=== PATIENT | male | born 1955 | race Caucasian/White ===

== ENCOUNTER 2016-08-18 08:06 | Emergency (ER) | payer MEDICARE, BC ==
--- NOTE | 2016-08-18 08:11 | EDM.PDOC ---
ED HPI GENERAL MEDICAL PROBLEM - General Chief Complaint: Chest Pain Stated Complaint: SOB Time Seen by Provider: 08/18/16 08:10 - History of Present Illness INITIAL COMMENTS - FREE TEXT/NARRATIVE: 60-year-old male presents emergency room with chest pain. This pain has been present for 8 or 9 days progressively getting worse. It started last night. The patient did not notice a choking spell or anything like that he awoke that night with severe crampy in his mid lower chest. Since this time he's had difficulty swallowing. He cannot keep his medications down he does get stuck in his throat. The pain seems to come in waves and is getting worse over time. He states he has not had much to eat or drink over the last week or so. He has noticed shortness of breath when things are stuck in his throat. This pain does not radiate. He has been seen in the clinic he had a CAT scan of his abdomen done looking at the hernia however gallstones were noticed. Patient has a remarkable history of be in one year post kidney transplant. He's doing well with this however he's developed a incisional hernia that is due to be addressed at the [facility] in one month. On today's visit he's noticed to have an irregularly irregular heart rhythm this is new for him. Epigastric Pain Score (Numeric/FACES): 10 - Related Data Allergies Allergy/AdvReac Type Severity Reaction Status Date / Time No Known Allergies Allergy Verified 08/18/16 08:18 Home Meds: Home Meds Omeprazole [Omeprazole] 20 mg PO DAILY 07/30/13 [History] Acetaminophen [Acetaminophen Extra Strength] 500 mg PO Q6H PRN 08/18/16 [History ] Calcitriol [Rocaltrol] 1 cap PO DAILY 08/18/16 [History] Calcium Carbonate 3 tab PO TID 08/18/16 [History] Fluticasone/Salmeterol [Advair Diskus 500-50] 1 puff INH BID 08/18/16 [History] Folic Acid 1 tab PO DAILY 08/18/16 [History] Levothyroxine [Synthroid] 1 tab PO DAILY 08/18/16 [History] Lutein 1 tab PO DAILY 08/18/16 [History] Magnesium Oxide 1 tab PO BID 08/18/16 [History] Multivitamins [Tab-A-Bibi] 1 tab PO DAILY 08/18/16 [History] Mycophenolate Mofetil [Cellcept] 3 tab PO BID 08/18/16 [History] Sennosides [Senna] 2 tab PO BID PRN 08/18/16 [History] Tacrolimus [Prograf] 4 cap PO BID 08/18/16 [History] Tamsulosin [Flomax] 1 cap PO DAILY 08/18/16 [History] Social & Family History - Recreational Drug Use Recreational Drug Use: No Recreational Drug Type: Reports: Other (see below) (Quit ETOH also in 2003) ED ROS GENERAL - Review of Systems Review Of Systems: See Below Constitutional: Reports: No Symptoms HEENT: Reports: Throat Pain Respiratory: Reports: Shortness of Breath (With the spells he gets in his chest) Cardiovascular: Reports: Chest Pain. Denies: Dyspnea on Exertion, Edema, Lightheadedness, Palpitations GI/Abdominal: Reports: No Symptoms. Denies: Constipation, Diarrhea, Nausea, Vomiting : Reports: No Symptoms Musculoskeletal: Reports: No Symptoms Neurological: Reports: No Symptoms ED EXAM, GENERAL - Physical Exam Exam: See Below Exam Limited By: No Limitations General Appearance: Alert, Moderate Distress (From discomfort) Head: Atraumatic, Normocephalic Neck: Normal Inspection, Supple, Non-Tender, Full Range of Motion. No: Limited Range of Motion, Lymphadenopathy (L), Lymphadenopathy (R), Tender Midline Respiratory/Chest: No Respiratory Distress, Lungs Clear, Normal Breath Sounds Cardiovascular: No Edema, No Murmur, Tachycardia (Is a mild tachycardia rate around 100), Irregularly Irregular GI/Abdominal: Normal Bowel Sounds, Soft, Other (He has some vague mild upper abdominal discomfort mostly in the epigastric area. He has a large hernia right lower quadrant lateral to his transplant incision site) Back Exam: Normal Inspection. No: CVA Tenderness (L), CVA Tenderness (R) EKG INTERPRETATION EKG Date: 08/18/16 Rhythm: a-fib Stuart: normal P-wave: absent QRS: normal ST-T: normal QT: normal Comparison: NA - no prior EKG EKG Interpretation Comments: Abnormal: Atrial fibrillation rate 90 cannot exclude flutter but I think this is less likely and mostly due to artifact. Second EKG is more consistent with flutter variable conduction otherwise no significant changes from the first EKG Course - Vital Signs Last Recorded V/S: Last Vital Signs Temp 36.3 C 08/18/16 08:12 Pulse 99 08/18/16 08:12 Resp 28 H 08/18/16 08:12 BP 125/85 08/18/16 08:45 Pulse Ox 97 08/18/16 08:12 - Orders/Labs/Meds Orders: Active Orders 24 hr Category Date Time Status EKG 12 Lead [EKG Documentation Completion] [] STAT Care 08/18/16 08:26 Active EKG 12 Lead [EKG Documentation Completion] [] STAT Care 08/18/16 10:19 Active Lactated Ringers [Ringers, Lactated] 1,000 ml Med 08/18/16 08:45 Active IV ASDIRECTED Morphine Med 08/18/16 14:57 Once 2 mg IVPUSH ONETIME ONE Medication Orders Lactated Ringer's (Ringers, Lactated) 1,000 mls @ 50 mls/hr IV ASDIRECTED VAN Last Admin: 08/18/16 08:46 Dose: 50 mls/hr Morphine Sulfate (Morphine) 2 mg IVPUSH ONETIME ONE Stop: 08/18/16 14:58 Labs: Laboratory Tests 08/18/16 08/18/16 08/18/16 Range/Units 08:15 08:15 08:15 WBC (4.23-9.07) K/mm3 RBC (4.63-6.08) M/mm3 Hgb (13.7-17.5) gm/L Hct (40.1-51.0) % MCV (79.0-92.2) fl MCH (25.7-32.2) pg MCHC (32.2-35.5) g/dl RDW Std Deviation (35.1-43.9) fL Plt Count (163-337) K/mm3 MPV (9.4-12.3) fl Neutrophils % (Manual) (40-60) % Band Neutrophils % (0-10) % Lymphocytes % (Manual) (20-40) % Atypical Lymphs % % Monocytes % (Manual) (2-10) % Eosinophils % (Manual) (0.8-7.0) % Basophils % (Manual) (0.2-1.2) Platelet Estimate RBC Morph Comment PT (8.0-13.0) SECONDS INR APTT (22-36) SECONDS Sodium 128 L (136-145) mEq/L Potassium 4.7 (3.5-5.1) mEq/L Chloride 97 L (98-107) mEq/L Carbon Dioxide 17 L (21-32) mEq/L Anion Gap 18.7 H (5-15) BUN 23 H (7-18) mg/dL Creatinine 1.2 (0.7-1.3) mg/dL Est Cr Clr Drug Dosing 72.75 mL/min Estimated GFR (MDRD) > 60 (>60) mL/min BUN/Creatinine Ratio 19.2 H (14-18) Glucose 137 H (74-106) mg/dL Calcium 7.4 L (8.5-10.1) mg/dL Magnesium 1.2 L (1.8-2.4) mg/dl Total Bilirubin 0.6 (0.2-1.0) mg/dL AST 104 H (15-37) U/L ALT 106 H (16-63) U/L Alkaline Phosphatase 112 (46-116) U/L Troponin I < 0.017 (0.00-0.056) ng/mL B-Natriuretic Peptide 208 H (0-100) pg/mL Total Protein 8.3 H (6.4-8.2) g/dl Albumin 3.9 (3.4-5.0) g/dl Globulin 4.4 gm/dL Albumin/Globulin Ratio 0.9 L (1-2) Lipase 140 (73-393) U/L 08/18/16 08/18/16 08/18/16 Range/Units 08:39 08:39 12:34 WBC 3.59 L (4.23-9.07) K/mm3 RBC 4.64 (4.63-6.08) M/mm3 Hgb 14.8 (13.7-17.5) gm/L Hct 41.6 (40.1-51.0) % MCV 89.7 (79.0-92.2) fl MCH 31.9 (25.7-32.2) pg MCHC 35.6 H (32.2-35.5) g/dl RDW Std Deviation 44.0 H (35.1-43.9) fL Plt Count 152 L (163-337) K/mm3 MPV 10.1 (9.4-12.3) fl Neutrophils % (Manual) 78 H (40-60) % Band Neutrophils % 1 (0-10) % Lymphocytes % (Manual) 20 (20-40) % Atypical Lymphs % 0 % Monocytes % (Manual) 1 L (2-10) % Eosinophils % (Manual) 0 L (0.8-7.0) % Basophils % (Manual) 0 L (0.2-1.2) Platelet Estimate Adequate RBC Morph Comment Normal PT 11.3 (8.0-13.0) SECONDS INR 1.03 APTT 41 H (22-36) SECONDS Sodium (136-145) mEq/L Potassium (3.5-5.1) mEq/L Chloride (98-107) mEq/L Carbon Dioxide (21-32) mEq/L Anion Gap (5-15) BUN (7-18) mg/dL Creatinine (0.7-1.3) mg/dL Est Cr Clr Drug Dosing mL/min Estimated GFR (MDRD) (>60) mL/min BUN/Creatinine Ratio (14-18) Glucose (74-106) mg/dL Calcium (8.5-10.1) mg/dL Magnesium (1.8-2.4) mg/dl Total Bilirubin (0.2-1.0) mg/dL AST (15-37) U/L ALT (16-63) U/L Alkaline Phosphatase (46-116) U/L Troponin I < 0.017 (0.00-0.056) ng/mL B-Natriuretic Peptide (0-100) pg/mL Total Protein (6.4-8.2) g/dl Albumin (3.4-5.0) g/dl Globulin gm/dL Albumin/Globulin Ratio (1-2) Lipase (73-393) U/L Meds: Medications Generic Name Dose Route Start Last Admin Trade Name Freq PRN Reason Stop Dose Admin Lactated Ringer's 1,000 mls @ 50 mls/hr 08/18/16 08:45 08/18/16 08:46 Ringers, Lactated IV 50 mls/hr ASDIRECTED VAN Administration Morphine Sulfate 2 mg 08/18/16 14:57 Morphine IVPUSH 08/18/16 14:58 ONETIME ONE Discontinued Medications Generic Name Dose Route Start Last Admin Trade Name Freq PRN Reason Stop Dose Admin Magnesium Sulfate 2 gm/ Premix 50 mls @ 25 mls/hr 08/18/16 09:18 08/18/16 09: 23 IV 08/18/16 11:17 25 mls/hr ONETIME ONE Administration Lorazepam 0.5 mg 08/18/16 09:00 08/18/16 09:06 Ativan IVPUSH 08/18/16 09:01 0.5 mg ONETIME ONE Administration Morphine Sulfate 2 mg 08/18/16 09:23 08/18/16 09:35 Morphine IVPUSH 08/18/16 09:24 2 mg ONETIME ONE Administration Nitroglycerin 0.4 mg 08/18/16 08:38 08/18/16 08:45 Nitrostat SL 08/18/16 08:39 0.4 mg ONETIME ONE Administration Sucralfate 1 gm 08/18/16 11:38 08/18/16 11:50 Carafate PO 08/18/16 11:39 1 gm ONETIME ONE Administration - Re-Assessments/Exams Free Text/Narrative Re-Assessment/Exam: 08/18/16 09:50 Patient was trialed on nitroglycerin this did not seem to help he was given Ativan and she got quite anxious and worked up and he tried to do a portable chest x-ray. He's given 2 mg morphine and is resting more comfortably at this time I will try to repeat a second EKG when I'm sure he won't have artifact. Chest x-ray poor quality no acute changes. Troponin is negative at this time other labs unrevealing lipase pending. Magnesium is low he received 2 g of magnesium IV the patient is on oral magnesium but recently hasn't been able to keep his medications down. 08/18/16 11:41 Patient denies any significant improvement in his pain over the long run however he is resting more comfortably his escalated respiratory rate has come down. On the monitor he appears to have atrial flutter with variable conduction. We are waiting on his second troponin at this time. We'll try some Carafate I think a lot of his discomfort is coming from esophageal spasm. This needs to be looked at the atrial fib/flutter is new he should be considered for anticoagulation but not until his esophagus is examined. 06/09/17 14:[address] Jones who is concerned about potential cardiac status and this patient's better served going to [place]. Case discussed with the patient's regular physician Dr. Reyes who also agrees to going to [facility] in [place]. This was discussed with the family they would like to go by private car he is stable otherwise we can give him a little bit morphine before he goes. Case was discussed with Dr. Green him a hospitalist at [facility] who will accept the patient as a direct admit. Departure - Departure Time of Disposition: 14:59 Disposition: DC/Tfer to [facility] 02 Clinical Impression: Chest pain, Esophageal abnormality, Dehydration - Discharge Information Additional Instructions: Have all your current medications with you and then go directly to [facility] in [place]. You will be a direct admission. - My Orders Last 24 Hours: My Active Orders 08/18/16 08:26 EKG 12 Lead [EKG Documentation Completion] [RC] STAT 08/18/16 08:45 Lactated Ringers [Ringers, Lactated] 1,000 ml IV ASDIRECTED 08/18/16 10:19 EKG 12 Lead [EKG Documentation Completion] [RC] STAT 08/18/16 14:57 Morphine 2 mg IVPUSH ONETIME ONE - Assessment/Plan Last 24 Hours: My Active Orders 08/18/16 08:26 EKG 12 Lead [EKG Documentation Completion] [RC] STAT 08/18/16 08:45 Lactated Ringers [Ringers, Lactated] 1,000 ml IV ASDIRECTED 08/18/16 10:19 EKG 12 Lead [EKG Documentation Completion] [RC] STAT 08/18/16 14:57 Morphine 2 mg IVPUSH ONETIME ONE
[2016-08-18] MEDS ORDERED: Nitroglycerin 0.4 MG Tab.SL SL ONE (08:38)
[2016-08-18] MEDS ORDERED: Lactated Ringers 1,000 ML IV SCH (08:45)
[2016-08-18] MEDS ORDERED: LORazepam 2 MG/ML MDV IVPUSH ONE (09:00)
[2016-08-18] MEDS ORDERED: Magnesium Sulfate/Water 2 GM in Premix Bag 1 BAG IV ONE (09:18)
[2016-08-18] MEDS ORDERED: Morphine 2 MG/ML Syringe IVPUSH ONE ×2 (09:23→14:57)
[2016-08-18] MEDS ORDERED: Sucralfate 1 GM Tab PO ONE (11:38)
--- NOTE | 2016-08-18 11:40 | CR ---
Chest: Frontal view of the chest was obtained. Comparison: Previous chest CT of 03/19/15 and chest x-ray of 10/09/12. Nodular density is noted within the right upper chest. This is seen on prior exam as well as prior CT. Mild increased lung markings are noted which appear chronic. No acute infiltrates are seen. Old bilateral rib fractures are noted. Impression: 1. Incidental findings. Nothing acute is identified. Diagnostic code #2
[2016-08-18 15:52] VITALS: BP 126/79
== END 2016-08-18 15:18 ==
LOC: JD.ED 08:06
DX: R07.9 Chest pain, unspecified (principal); K22.9 Disease of esophagus, unspecified; E86.0 Dehydration; Z79.899 Other long term (current) drug therapy
CPT/HCPCS: 36415; 71010; 80053; 83690; 83735; 83880; 84484; 85025; 85610; 85730; 93005; 96361; 96365; 96366; 96375; 96376; 99285; A9270; J2060; J2270; J7120; 99284; J3475

== ENCOUNTER 2016-09-06 12:03 | Emergency (ER) | payer MEDICARE, BC ==
[2016-09-06] MEDS ORDERED: Sodium Chloride 0.9% 1,000 ML IV SCH ×2 (12:10→13:00)
[2016-09-06] MEDS ORDERED: Piperacillin/Tazobactam 4.5 GM in Sodium Chloride 0.9% 100 ML IV ONE (12:17)
[2016-09-06 12:18] VITALS: BP 84/51
[2016-09-06] MEDS ORDERED: Vancomycin 1 GM, Vancomycin 500 MG in Sodium Chloride 0.9% 500 ML IV ONE (12:30)
[2016-09-06] MEDS ORDERED: Rocuronium 50 MG/5 ML Vial IVPUSH ONE (12:33)
[2016-09-06] MEDS ORDERED: Ketamine 500 mg/10 ML MDV IV ONE ×3 (12:33→13:17)
[2016-09-06] MEDS ORDERED: Sodium Chloride 0.9% 1,000 ML IV ONE ×2 (12:35→13:10)
--- NOTE | 2016-09-06 12:51 | CT ---
Head CT Technique: Multiple axial sections through the brain were obtained. Intravenous contrast was not utilized. Comparison: Previous head CT study of 10/09/12. Findings: Rather severe motion artifact is present. This severely limits details of the study. Ventricles along with basal cisterns and sulci over the convexities are within normal limits for the patient's age. No gross abnormal parenchymal densities are seen. No evidence of intracranial hemorrhage. No midline shift is seen. No gross calvarial abnormality is seen. Impression: 1. Severe motion artifact diminishing details. Within this significant limitation, no gross abnormality is identified. Diagnostic code #3
--- NOTE | 2016-09-06 12:52 | EDM.PDOC ---
[id number] Complaint: [facility] Time Seen by Provider: 09/06/16 12:17 Source of Information: Reports: EMS History Limitations: Reports: Altered Mental Status - History of Present Illness INITIAL COMMENTS - FREE TEXT/NARRATIVE: 60 y/o M brought in by ambulance for altered mental status. Family called EMS. No one knows when the patient was last well. Per EMS, patient was unresponsive in bed. He looked like he'd been there for a while. He was completely unresponsive, breathing 10x/min, low SpO2, HR in 30's, unable to obtain BP at the scene. They immediately transported him. After suctioning, his SpO2 improved on a nonrebreather to 90's and his respiratory effort improved and HR increased to 70's. No vocalization or extremity movement. Unable to obtain further hx from patient as he is obtunded. Per ED nurses, patient was in this ED about a week ago with chest pain and a-fib and was transferred to [place]. Treatments [employer]: Reports: IV/IO, Oxygen - Related Data Allergies Allergy/AdvReac Type Severity Reaction Status Date / Time No Known Allergies Allergy Unverified 09/06/16 12:18 Home Meds: Home Meds Acetaminophen [Acetaminophen Extra Strength] 500 mg PO Q6H PRN 08/18/16 [History ] Calcitriol [Rocaltrol] 1 cap PO DAILY 08/18/16 [History] Calcium Carbonate 3 tab PO TID 08/18/16 [History] Folic Acid 1 tab PO DAILY 08/18/16 [History] Levothyroxine [Synthroid] 1 tab PO DAILY 08/18/16 [History] Lutein 1 tab PO DAILY 08/18/16 [History] Magnesium Oxide 1 tab PO BID 08/18/16 [History] Multivitamins [Tab-A-Bibi] 1 tab PO DAILY 08/18/16 [History] Mycophenolate Mofetil [Cellcept] 3 tab PO BID 08/18/16 [History] Sennosides [Senna] 2 tab PO BID PRN 08/18/16 [History] Tacrolimus [Prograf] 4 cap PO BID 08/18/16 [History] Tamsulosin [Flomax] 1 cap PO DAILY 08/18/16 [History] Aspirin 81 mg PO DAILY 09/06/16 [History] Sodium Chloride 1 gm PO ASDIRECTED 09/06/16 [History] Sucralfate [Carafate] 1 gm PO QID 09/06/16 [History] Past Medical History Respiratory History: Reports: Asthma Gastrointestinal History: Reports: Other (See Below) Other Gastrointestinal History: incisional hernia Genitourinary History: Reports: Dialysis Social & Family History - Tobacco Use Smoking Status *Q: Former Smoker Used Tobacco, but Quit: Yes Month Tobacco Last Used: 2002 - Caffeine Use Caffeine Use: Reports: None - Recreational Drug Use Recreational Drug Use: No Recreational Drug Type: Reports: Other (see below) (Quit ETOH also in 2002) ED ROS GENERAL - Review of Systems Review Of Systems: Unable To Obtain ED EXAM, NEURO - Physical Exam Exam: See Below Exam Limited By: Altered Mental Status General Appearance: Other (Obtunded. Eyes open but doesn't respond to verbal or painful stimuli. ) Eye Exam: Bilateral Eye: PERRL (2mm) Ears: Normal External Exam Nose: Normal Inspection Throat/Mouth: Other (very dry mucous membranes, dried blood at the lips) Neck: Normal Inspection, Supple Respiratory/Chest: Crackles, Rales, Other (coarse bilaterally. ) Cardiovascular: No Edema, Irregularly Irregular GI/Abdominal: Soft, Other (large RLQ incisional hernia, easily reducible. no guarding. ) Neurological: Other (Obtunded. Eyes open but doesn't respond to verbal or painful stimuli. No movement of upper or lower extremities. No facial droop. ) Back Exam: Normal Inspection Extremities: Other (Old HD fistula in LUE with positive thrill) Skin Exam: Warm, Dry, Intact, Normal Color, No Rash ED NEURO PROCEDURES - Endotracheal Intubation Time of Intubation: 12:30 ET Intubation Indication: Respiratory Failure, Airway Protection Preparation: Suction, Balloon Tested, BVM Set Up, Difficult Airway Equip Pre-Oxygenation: Assisted With BVM, 100% FiO2 Anesthesia Meds: Ketamine, Rocuronium Placement: Orotracheal Cords Visualized: Yes, Grade 1 ETT Size In mm: 8 Number of Attempts: 1 Confirmed By: CO2 Indicator, Bilateral Breath Sounds, Chest Xray Tube Secured By: By RT Course - Vital Signs Last Recorded V/S: Last Vital Signs Temp 36.4 C 09/06/16 12:08 Pulse 88 09/06/16 12:08 Resp 21 H 09/06/16 12:08 BP 84/51 L 09/06/16 12:08 Pulse Ox 99 09/06/16 12:08 - Orders/Labs/Meds Orders: Active Orders 24 hr Category Date Time Status EKG 12 Lead [EKG Documentation Completion] [RC] STAT Care 09/06/16 12:06 Active Insert Urinary Catheter [OM.PC] Q24H Care 09/06/16 13:00 Ordered Urinary Catheter Assessment [RC] ASDIRECTED Care 09/06/16 12:53 Active Ventilator Assessment [RT Ventilator, Adult] [] Care 09/06/16 12:55 Active ASDIRECTED OR PCXR-No Charge-PICC/Central [CR] Stat Exams 09/06/16 12:43 Taken CULTURE BLOOD [BC] Stat Lab 09/06/16 12:10 Received CULTURE BLOOD [BC] Stat Lab 09/06/16 12:10 Received Norepinephrine [Levophed] 4 mg Med 09/06/16 13:00 Active Dextrose 5% in Water 246 ml IV TITRATE Sodium Chloride 0.9% [Normal Saline] 1,000 ml Med 09/06/16 12:10 Active IV ASDIRECTED Sodium Chloride 0.9% [Normal Saline] 1,000 ml Med 09/06/16 13:00 Active IV ASDIRECTED Nasogastric Orogastric Tube Insertion [OM.PC] Routine Oth 09/06/16 12:51 Ordered Medication Orders Sodium Chloride (Normal Saline) 1,000 mls @ 999 mls/hr IV ASDIRECTED VAN Last Admin: 09/06/16 12:10 Dose: 999 mls/hr Sodium Chloride (Normal Saline) 1,000 mls @ 999 mls/hr IV ASDIRECTED VAN Last Admin: 09/06/16 12:55 Dose: 999 mls/hr Norepinephrine Bitartrate 4 mg (/ Dextrose/Water) 250 mls @ 7.5 mls/hr IV TITRATE VAN; 2 MCG/MIN PRN Reason: Protocol Last Admin: 09/06/16 13:06 Dose: 10 mcg/min, 37.5 mls/hr Labs: Laboratory Tests 09/06/16 09/06/16 09/06/16 Range/Units 12:10 12:10 12:10 WBC 32.00 H (4.23-9.07) K/mm3 RBC 3.38 L (4.63-6.08) M/mm3 Hgb 10.5 L (13.7-17.5) gm/L Hct 29.6 L (40.1-51.0) % MCV 87.6 (79.0-92.2) fl MCH 31.1 (25.7-32.2) pg MCHC 35.5 (32.2-35.5) g/dl RDW Std Deviation 46.1 H (35.1-43.9) fL Plt Count 134 L (163-337) K/mm3 MPV 9.4 (9.4-12.3) fl Neutrophils % (Manual) 46 (40-60) % Band Neutrophils % 35 H (0-10) % Lymphocytes % (Manual) 9 L (20-40) % Atypical Lymphs % 0 % Monocytes % (Manual) 5 (2-10) % Eosinophils % (Manual) 0 L (0.8-7.0) % Basophils % (Manual) 0 L (0.2-1.2) Metamyelocytes % 3 Myelocytes % 2 Differential Comment See note Platelet Estimate See note Polychromasia 1+ slight Poikilocytosis 1+ slight Anisocytosis 1+ slight RBC Morph Comment Not Reportable PT 16.6 H (8.0-13.0) SECONDS INR 1.48 Puncture Site ABG pH (7.35-7.45) ABG pCO2 (35.0-45.0) mmHg ABG pO2 (80.0-100.0) mmHg ABG HCO3 (22.0-26.0) meq/L ABG O2 Saturation (96.0-97.0) % ABG Base Excess (-2-2.0) A-a Gradient mmHg O2 Delivery Device Oxygen Flow Rate FiO2 (21.00-100.00) % Sodium 120 L (136-145) mEq/L Potassium 4.6 (3.5-5.1) mEq/L Chloride 87 L (98-107) mEq/L Carbon Dioxide 13 L (21-32) mEq/L Anion Gap 24.6 H (5-15) BUN 102 H (7-18) mg/dL Creatinine 13.0 H (0.7-1.3) mg/dL Est Cr Clr Drug Dosing 6.52 mL/min Estimated GFR (MDRD) 4 (>60) mL/min BUN/Creatinine Ratio 7.8 L (14-18) Glucose 81 (74-106) mg/dL Lactic Acid (0.4-2.0) mmol/L Calcium 6.7 L (8.5-10.1) mg/dL Magnesium 1.6 L (1.8-2.4) mg/dl Total Bilirubin 0.5 (0.2-1.0) mg/dL AST 72 H (15-37) U/L ALT 107 H (16-63) U/L Alkaline Phosphatase 173 H (46-116) U/L Ammonia (11-32) umol/L Troponin I 0.024 (0.00-0.056) ng/mL Total Protein 6.2 L (6.4-8.2) g/dl Albumin 2.3 L (3.4-5.0) g/dl Globulin 3.9 gm/dL Albumin/Globulin Ratio 0.6 L (1-2) Free T4 0.73 L (0.76-1.46) ng/dL TSH 3rd Generation 1.165 (0.358-3.74) uIU/mL Urine Color (Yellow) Urine Appearance (Clear) Urine pH (5.0-8.0) Ur Specific [place] (1.005-1.030) Urine Protein (Negative) Urine Glucose (UA) (Negative) Urine Ketones (Negative) Urine Occult Blood (Negative) Urine Nitrite (Negative) Urine Bilirubin (Negative) Urine Urobilinogen (0.2-1.0) Ur Leukocyte Esterase (Negative) Urine Opiates Screen (NEGATIVE) Ur Buprenorphine Scrn (NEGATIVE) Ur Oxycodone Screen (NEGATIVE) Urine Methadone Screen (NEGATIVE) Ur Propoxyphene Screen (NEGATIVE) Ur Barbiturates Screen (NEGATIVE) Ur Tricyclics Screen (NEGATIVE) Ur Phencyclidine Scrn (NEGATIVE) Ur Amphetamine Screen (NEGATIVE) U Methamphetamines Scrn (NEGATIVE) U Benzodiazepines Scrn (NEGATIVE) U Cocaine Metab Screen (NEGATIVE) U Marijuana (THC) Screen (NEGATIVE) Ethyl Alcohol 0.00 (0.00) gm% Blood Type Gel Antibody Screen 09/06/16 09/06/16 09/06/16 Range/Units 12:10 12:10 12:10 WBC (4.23-9.07) K/mm3 RBC (4.63-6.08) M/mm3 Hgb (13.7-17.5) gm/L Hct (40.1-51.0) % MCV (79.0-92.2) fl MCH (25.7-32.2) pg MCHC (32.2-35.5) g/dl RDW Std Deviation (35.1-43.9) fL Plt Count (163-337) K/mm3 MPV (9.4-12.3) fl Neutrophils % (Manual) (40-60) % Band Neutrophils % (0-10) % Lymphocytes % (Manual) (20-40) % Atypical Lymphs % % Monocytes % (Manual) (2-10) % Eosinophils % (Manual) (0.8-7.0) % Basophils % (Manual) (0.2-1.2) Metamyelocytes % Myelocytes % Differential Comment Platelet Estimate Polychromasia Poikilocytosis Anisocytosis RBC Morph Comment PT (8.0-13.0) SECONDS INR Puncture Site ABG pH (7.35-7.45) ABG pCO2 (35.0-45.0) mmHg ABG pO2 (80.0-100.0) mmHg ABG HCO3 (22.0-26.0) meq/L ABG O2 Saturation (96.0-97.0) % ABG Base Excess (-2-2.0) A-a Gradient mmHg O2 Delivery Device Oxygen Flow Rate FiO2 (21.00-100.00) % Sodium (136-145) mEq/L Potassium (3.5-5.1) mEq/L Chloride (98-107) mEq/L Carbon Dioxide (21-32) mEq/L Anion Gap (5-15) BUN (7-18) mg/dL Creatinine (0.7-1.3) mg/dL Est Cr Clr Drug Dosing mL/min Estimated GFR (MDRD) (>60) mL/min BUN/Creatinine Ratio (14-18) Glucose (74-106) mg/dL Lactic Acid 2.1 H (0.4-2.0) mmol/L Calcium (8.5-10.1) mg/dL Magnesium (1.8-2.4) mg/dl Total Bilirubin (0.2-1.0) mg/dL AST (15-37) U/L ALT (16-63) U/L Alkaline Phosphatase (46-116) U/L Ammonia < 10 L (11-32) umol/L Troponin I (0.00-0.056) ng/mL Total Protein (6.4-8.2) g/dl Albumin (3.4-5.0) g/dl Globulin gm/dL Albumin/Globulin Ratio (1-2) Free T4 (0.76-1.46) ng/dL TSH 3rd Generation (0.358-3.74) uIU/mL Urine Color (Yellow) Urine Appearance (Clear) Urine pH (5.0-8.0) Ur Specific [place] (1.005-1.030) Urine Protein (Negative) Urine Glucose (UA) (Negative) Urine Ketones (Negative) Urine Occult Blood (Negative) Urine Nitrite (Negative) Urine Bilirubin (Negative) Urine Urobilinogen (0.2-1.0) Ur Leukocyte Esterase (Negative) Urine Opiates Screen (NEGATIVE) Ur Buprenorphine Scrn (NEGATIVE) Ur Oxycodone Screen (NEGATIVE) Urine Methadone Screen (NEGATIVE) Ur Propoxyphene Screen (NEGATIVE) Ur Barbiturates Screen (NEGATIVE) Ur Tricyclics Screen (NEGATIVE) Ur Phencyclidine Scrn (NEGATIVE) Ur Amphetamine Screen (NEGATIVE) U Methamphetamines Scrn (NEGATIVE) U Benzodiazepines Scrn (NEGATIVE) U Cocaine Metab Screen (NEGATIVE) U Marijuana (THC) Screen (NEGATIVE) Ethyl Alcohol (0.00) gm% Blood Type O NEGATIVE Gel Antibody Screen Negative 09/06/16 09/06/16 09/06/16 Range/Units 12:24 13:39 13:39 WBC (4.23-9.07) K/mm3 RBC (4.63-6.08) M/mm3 Hgb (13.7-17.5) gm/L Hct (40.1-51.0) % MCV (79.0-92.2) fl MCH (25.7-32.2) pg MCHC (32.2-35.5) g/dl RDW Std Deviation (35.1-43.9) fL Plt Count (163-337) K/mm3 MPV (9.4-12.3) fl Neutrophils % (Manual) (40-60) % Band Neutrophils % (0-10) % Lymphocytes % (Manual) (20-40) % Atypical Lymphs % % Monocytes % (Manual) (2-10) % Eosinophils % (Manual) (0.8-7.0) % Basophils % (Manual) (0.2-1.2) Metamyelocytes % Myelocytes % Differential Comment Platelet Estimate Polychromasia Poikilocytosis Anisocytosis RBC Morph Comment PT (8.0-13.0) SECONDS INR Puncture Site Rt radial ABG pH 6.98 L* (7.35-7.45) ABG pCO2 52.8 H (35.0-45.0) mmHg ABG pO2 159.0 H* (80.0-100.0) mmHg ABG HCO3 11.8 L (22.0-26.0) meq/L ABG O2 Saturation 98.7 H (96.0-97.0) % ABG Base Excess -19.1 L (-2-2.0) A-a Gradient 415 mmHg O2 Delivery Device Nonrebreather Oxygen Flow Rate 15.0 FiO2 90.00 (21.00-100.00) % Sodium (136-145) mEq/L Potassium (3.5-5.1) mEq/L Chloride (98-107) mEq/L Carbon Dioxide (21-32) mEq/L Anion Gap (5-15) BUN (7-18) mg/dL Creatinine (0.7-1.3) mg/dL Est Cr Clr Drug Dosing mL/min Estimated GFR (MDRD) (>60) mL/min BUN/Creatinine Ratio (14-18) Glucose (74-106) mg/dL Lactic Acid (0.4-2.0) mmol/L Calcium (8.5-10.1) mg/dL Magnesium (1.8-2.4) mg/dl Total Bilirubin (0.2-1.0) mg/dL AST (15-37) U/L ALT (16-63) U/L Alkaline Phosphatase (46-116) U/L Ammonia (11-32) umol/L Troponin I (0.00-0.056) ng/mL Total Protein (6.4-8.2) g/dl Albumin (3.4-5.0) g/dl Globulin gm/dL Albumin/Globulin Ratio (1-2) Free T4 (0.76-1.46) ng/dL TSH 3rd Generation (0.358-3.74) uIU/mL Urine Color Dark yellow (Yellow) Urine Appearance Slt cloudy H (Clear) Urine pH 5.5 (5.0-8.0) Ur Specific [place] 1.025 (1.005-1.030) Urine Protein 2+ H (Negative) Urine Glucose (UA) Negative (Negative) Urine Ketones Negative (Negative) Urine Occult Blood Negative (Negative) Urine Nitrite Negative (Negative) Urine Bilirubin Negative (Negative) Urine Urobilinogen 0.2 (0.2-1.0) Ur Leukocyte Esterase Negative (Negative) Urine Opiates Screen Negative (NEGATIVE) Ur Buprenorphine Scrn Negative (NEGATIVE) Ur Oxycodone Screen Negative (NEGATIVE) Urine Methadone Screen Negative (NEGATIVE) Ur Propoxyphene Screen Negative (NEGATIVE) Ur Barbiturates Screen Negative (NEGATIVE) Ur Tricyclics Screen Negative (NEGATIVE) Ur Phencyclidine Scrn Negative (NEGATIVE) Ur Amphetamine Screen Negative (NEGATIVE) U Methamphetamines Scrn Negative (NEGATIVE) U Benzodiazepines Scrn Negative (NEGATIVE) U Cocaine Metab Screen Negative (NEGATIVE) U Marijuana (THC) Screen Negative (NEGATIVE) Ethyl Alcohol (0.00) gm% Blood Type Gel Antibody Screen Meds: Medications Generic Name Dose Route Start Last Admin Trade Name Freq PRN Reason Stop Dose Admin Sodium Chloride 1,000 mls @ 999 mls/hr 09/06/16 12:10 09/06/16 12:10 Normal Saline IV 999 mls/hr ASDIRECTED VAN Administration Sodium Chloride 1,000 mls @ 999 mls/hr 09/06/16 13:00 09/06/16 12:55 Normal Saline IV 999 mls/hr ASDIRECTED VAN Administration Norepinephrine Bitartrate 4 mg 250 mls @ 7.5 mls/hr 09/06/16 13:00 09/06/16 13:06 / Dextrose/Water IV 10 mcg/min TITRATE VAN 37.5 mls/hr Protocol Administration 2 MCG/MIN Discontinued Medications Generic Name Dose Route Start Last Admin Trade Name Freq PRN Reason Stop Dose Admin Piperacillin Sod/Tazobactam 100 mls @ 200 mls/hr 09/06/16 12:17 09/06/16 13: 14 Sod 4.5 gm/ Sodium Chloride IV 09/06/16 12:46 200 mls/hr ONETIME ONE Administration Vancomycin HCl 1 gm/ 500 mls @ 250 mls/hr 09/06/16 12:30 09/06/16 13:15 Vancomycin HCl 500 mg/ Sodium IV 06/28/17 14:29 250 mls/hr Chloride ONETIME ONE Administration Sodium Chloride 1,000 mls @ 999 mls/hr 09/06/16 12:35 09/06/16 12:35 Normal Saline IV 09/06/16 13:35 999 mls/hr ONETIME ONE Administration Sodium Chloride 1,000 mls @ 999 mls/hr 09/06/16 13:10 09/06/16 13:10 Normal Saline IV 09/06/16 14:10 999 mls/hr ONETIME ONE Administration Ketamine HCl 100 mg 09/06/16 12:33 09/06/16 12:41 Ketalar IV 09/06/16 12:34 100 mg ONETIME ONE Administration Ketamine HCl 50 mg 09/06/16 12:41 09/06/16 13:00 Ketalar IV 09/06/16 12:42 50 mg ONETIME ONE Administration Ketamine HCl 50 mg 09/06/16 13:17 09/06/16 13:30 Ketalar IV 09/06/16 13:18 50 mg ONETIME ONE Administration Ketamine HCl 500 mg 09/06/16 22:22 Ketalar .ROUTE 09/06/16 22:23 .STK-MED ONE Ketamine HCl 500 mg 09/06/16 14:00 Ketalar .ROUTE 09/06/16 14:01 .STK-MED ONE Rocuronium [place] 100 mg 09/06/16 12:33 09/06/16 12:41 Zemuron IVPUSH 09/06/16 12:34 100 mg ONETIME ONE Administration - Re-Assessments/Exams Free Text/Narrative Re-Assessment/Exam: 09/06/16 13:20 Obtunded patient found down, unknown downtime. Hypotensive. EKG shows a-fib with normal rate, narrow complex, normal intervals and T waves. CXR shows bilat pneumonia. Attempted head CT but patient was moving head and study attempt was aborted. Returned to resus room where he was intubated for airway protection. ABG obtained by RT prior to intubation showed severe acidosis with Ph 6.98, PCO2 52, and bicarb 11 consistent with mixed respiratory/metabolic acidosis. WBC 32. Remaining labs pending. Vanc/zosyn given for presumed severe sepsis due to pneumonia. Patient appears very dry, given hypotension aggressive fluid resuscitation initiated. Hypotension worsened with intubation (given ketamine for induction +rocuronium). Levophed drip initiated. [facility] called for attempted transfer to higher level of care, Dr. Hwang (ED) accepts the patient for transfer at 12:50. ICU attending also aware. Flight crew at the bedside. Current BP is 84/50's on levophed drip. Will not delay transport to reattempt CT head. 09/06/16 13:54 Updated family. Discussed with Sarah Sanchez , sister, who is also power of collections attorney. Departure - Departure Time of Disposition: 13:00 Disposition: DC/Tfer to [facility] Clinical Impression: Metabolic acidosis, Metabolic acidosis with respiratory acidosis Hypotension Qualifiers: Hypotension type: unspecified hypotension type Qualified Code(s): I95.9 - Hypotension, unspecified Altered mental status Qualifiers: Altered mental status type: stupor Qualified Code(s): R40.1 - Stupor Pneumonia Qualifiers: Pneumonia type: due to unspecified organism Laterality: bilateral Lung location : unspecified part of lung Qualified Code(s): J18.9 - Pneumonia, unspecified organism Respiratory failure Qualifiers: Chronicity: unspecified Respiratory failure complication: hypoxia and hypercapnia Qualified Code(s): J96.91 - Respiratory failure, unspecified with hypoxia Sepsis Qualifiers: Sepsis type: sepsis due to unspecified organism Qualified Code(s): A41.9 - Sepsis, unspecified organism - Discharge Information Referrals: Bebo Falk MD [Primary Care Provider] - Forms: ED Department Discharge Critical Care Note - Critical Care Note Total Time (mins): 112 - My Orders Last 24 Hours: My Active Orders 09/06/16 12:06 EKG 12 Lead [EKG Documentation Completion] [RC] STAT 09/06/16 12:10 CULTURE BLOOD [BC] Stat CULTURE BLOOD [BC] Stat Sodium Chloride 0.9% [Normal Saline] 1,000 ml IV ASDIRECTED 09/06/16 12:43 OR PCXR-No Charge-PICC/Central [CR] Stat 09/06/16 12:51 Nasogastric Orogastric Tube Insertion [OM.PC] Routine 09/06/16 12:53 Urinary Catheter Assessment [RC] ASDIRECTED 09/06/16 12:55 Ventilator Assessment [RT Ventilator, Adult] [RC] ASDIRECTED 09/06/16 13:00 Insert Urinary Catheter [OM.PC] Q24H Norepinephrine [Levophed] 4 mg Dextrose 5% in Water 246 ml IV TITRATE Sodium Chloride 0.9% [Normal Saline] 1,000 ml IV ASDIRECTED - Assessment/Plan Last 24 Hours: My Active Orders 09/06/16 12:06 EKG 12 Lead [EKG Documentation Completion] [RC] STAT 09/06/16 12:10 CULTURE BLOOD [BC] Stat CULTURE BLOOD [BC] Stat Sodium Chloride 0.9% [Normal Saline] 1,000 ml IV ASDIRECTED 09/06/16 12:43 OR PCXR-No Charge-PICC/Central [CR] Stat 09/06/16 12:51 Nasogastric Orogastric Tube Insertion [OM.PC] Routine 09/06/16 12:53 Urinary Catheter Assessment [RC] ASDIRECTED 09/06/16 12:55 Ventilator Assessment [RT Ventilator, Adult] [RC] ASDIRECTED 09/06/16 13:00 Insert Urinary Catheter [OM.PC] Q24H Norepinephrine [Levophed] 4 mg Dextrose 5% in Water 246 ml IV TITRATE Sodium Chloride 0.9% [Normal Saline] 1,000 ml IV ASDIRECTED
[2016-09-06] MEDS ORDERED: Norepinephrine 4 MG in Dextrose 5% in Water 246 ML IV SCH ×2 (13:00)
[2016-09-06] MEDS ORDERED: Sodium Bicarbonate 8.4% 50 MEQ/50 ML Syringe ONE (14:00)
[2016-09-06] MEDS ORDERED: Ketamine 500 mg/10 ML MDV ONE ×2 (14:00→22:22)
--- NOTE | 2016-09-06 15:27 | CR ---
Chest: Portable view of the chest was obtained. Comparison: Previous chest x-ray of 08/18/16. Diffuse increased density is seen within both lungs more prominent on the left side. Difficult to exclude is loculated pneumothorax on the left side given some straight interface of the parenchymal density. Heart is enlarged. Upper mediastinum is normal. Multiple bilateral rib fractures are seen which appear to be old. Impression: 1. Diffuse increased density within both lungs more prominent on the left side. Difficult to exclude left-sided pneumothorax. 2. Other incidental findings. 3. Chest CT could be considered to further evaluate. If patient has normal creatinine, contrast is recommended. Diagnostic code #5
--- NOTE | 2016-09-06 15:49 | CR ---
Chest: Portable view of the chest was obtained. Comparison: Previous chest x-ray performed earlier on the same day (12:08 PM) Endotracheal tube is seen. Previously straight interface of the parenchymal density on the left side is not seen. Nothing seen on this exam to indicate pneumothorax as questioned on prior chest x-ray. Consolidation is noted within portions of the peripheral left upper and left lower lobe. Lung markings are diffusely increased. Heart size is less prominent. Tortuous thoracic aorta is seen. Degenerative spurring is noted within the spine. Bony structures are osteopenic. Old healed rib fractures are noted as well as old healed left clavicle fracture. Tip of endotracheal tube lies slightly superior to the upper clavicles. Impression: 1. Increased density within both sides of the chest more prominent on the left side. Please correlate if patient has infectious symptoms for this to represent areas of pneumonia. On the right side there is some nodularity being seen and difficult to completely exclude metastatic disease. Chest CT would be helpful at sometime in the future to further evaluate. 2. Endotracheal tube at the upper level of the clavicles. Diagnostic code #5
== END 2016-09-06 13:40 | disposition critical access hospital (66) ==
LOC: JD.ED 12:03
DX: A41.9 Sepsis, unspecified organism (principal); J96.91 Respiratory failure, unspecified with hypoxia; R40.1 Stupor; E87.4 Mixed disorder of acid-base balance; I95.9 Hypotension, unspecified; J18.9 Pneumonia, unspecified organism; J45.909 Unspecified asthma, uncomplicated; Z99.2 Dependence on renal dialysis; Z87.891 Personal history of nicotine dependence; Z98.890 Other specified postprocedural states; Z79.82 Long term (current) use of aspirin; Z79.899 Other long term (current) drug therapy
CPT/HCPCS: 31500; 36415; 36600; 51702; 70450; 71010; 80053; 80306; 81003; 82140; 82803; 83605; 83735; 84439; 84443; 84484; 85025; 85610; 86850; 86900; 86901; 87040; 93005; 96361; 96365; 96367; 96368; 96375; 96376; 99291; 99292; G0480; J2543; J3370; J7030; J7040; J7060; 82962; 87186

== ENCOUNTER 2016-11-23 11:24 | Emergency (ER) | payer MEDICARE, BC ==
--- NOTE | 2016-11-23 11:27 | EDM.PDOC ---
ED HPI GENERAL MEDICAL PROBLEM - General Chief Complaint: Cardiovascular Problem Stated Complaint: SENT FROM DIALYSIS Time Seen by Provider: 11/23/16 11:27 Source of Information: Reports: Patient History Limitations: Reports: No Limitations - History of Present Illness INITIAL COMMENTS - FREE TEXT/NARRATIVE: 61-year-old male who is a hemodialysis patient just completed his hemodialysis run this morning. He sent up to the ED for evaluation of rapid heart rate. Patient by history has chronic atrial fibrillation and when he arrived he was an age fibrillation at about 102-10 5/m. Family was high as 125 1 30/m in the dialysis suite. He usually takes his medications which includes metoprolol 37.5 mg twice daily for heart rate control after his dialysis run daily. He feels okay and his blood pressure is maintained at 143/86 at present. He does clinically have a right-sided pleural effusion. Onset: Today Onset Date: 11/23/16 Onset Time: 10:00 Duration: Hour(s): Location: Reports: Chest Quality: Reports: Other Severity: Moderate (He is in no pain or discomfort. Doesn't feel dizzy or lightheaded.) Improves with: Reports: None Worsens with: Reports: None Context: Reports: Other (Chronic atrial fibrillation with rapid irregular rate noted during dialysis run today.). Denies: Activity, Exercise, Lifting, Sick Contact, Trauma Associated Symptoms: Reports: Malaise, Shortness of Breath. 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: Other (see below) (None.) - Related Data Allergies Allergy/AdvReac Type Severity Reaction Status Date / Time No Known Allergies Allergy Verified 11/23/16 11:31 Home Meds: Home Meds Acetaminophen [Acetaminophen Extra Strength] 500 mg PO Q6H PRN 08/18/16 [History ] Folic Acid 0.8 mg PO DAILY 08/18/16 [History] Levothyroxine [Synthroid] 1 tab PO DAILY 08/18/16 [History] Magnesium Oxide 1 tab PO BID 08/18/16 [History] Mycophenolate Mofetil [Cellcept] 1 tab PO BID 08/18/16 [History] Sennosides [Senna] 2 tab PO BID PRN 08/18/16 [History] Tacrolimus [Prograf] 2 cap PO BID 08/18/16 [History] Aspirin 325 mg PO DAILY 09/06/16 [History] Calcium Carbonate/Vitamin D3 [Caltrate-600 with Vit D Tab] 1 each PO BID [History] Fluticasone/Salmeterol [Advair Diskus 500-50] 1 puff INH BID 11/23/16 [History] Metoprolol Tartrate 37.5 mg PO BID 11/23/16 [History] Ranitidine HCl [Ranitidine] 75 mg PO BID 11/23/16 [History] Past Medical History Cardiovascular History: Reports: Afib (Chronically.) Respiratory History: Reports: Asthma, COPD, Other (See Below) (Fairly developed sepsis from a pneumonia in the spring either June or July and ended up in the [facility] for a period of time. This compromised his renal function i.e. had a renal transplant on the right side. He developed a tremendous amount of fluid retention and his dry weight is yet to be reached. He is currently receiving dialysis 3 times weekly in other words his renal transplant failed likely due to the sepsis. He has been in [facility] for convalescence up until today when he put his walker in the garage.) Gastrointestinal History: Reports: Other (See Below) Other Gastrointestinal History: incisional hernia Genitourinary History: Reports: Dialysis, Other (See Below) (Right renal transplant carried out in September 2015 [place] failure after developing septic pneumonia in June or July of this year when he was at the [facility]. In and him back up on dialysis. Still makes a little bit of urine daily. He is still on CellCept and Prograf and he is immunocompromised. His true dry weight has yet to be established as he continues to gain weight.) - Past Surgical History GI Surgical History: Reports: Other (See Below) (Right renal transplant right lower quadrant of the abdomen done September 2015. This kidney has failed after developing septic pneumonia this spring. This is placed him back on hemodialysis 3 times weekly.) Social & Family History - Family History Family Medical History: Unobtainable - Tobacco Use Smoking Status *Q: Former Smoker Used Tobacco, but Quit: Yes Month Tobacco Last Used: 2002 - Caffeine Use Caffeine Use: Reports: None Other Caffeine Use: unknown - Recreational Drug Use Recreational Drug Use: No Recreational Drug Type: Reports: Other (see below) (Quit ETOH also in 2003) Other Recreational Drug Type: unknown - Living Situation & Occupation Living situation: Reports: Occupation: Disabled ED ROS GENERAL - Review of Systems Review Of Systems: See Below Constitutional: Reports: Weakness, Fatigue. Denies: Fever, Chills, Malaise, Decreased Appetite, Weight Loss HEENT: Reports: Glasses Respiratory: Reports: Shortness of Breath, Cough. Denies: Wheezing, Pleuritic Chest Pain (Chronically), Sputum, Hemoptysis (Usually nonproductive) Cardiovascular: Reports: Blood Pressure Problem, Dyspnea on Exertion (Mild in his legs), Edema, Palpitations. Denies: Chest Pain, Claudication, Lightheadedness, Orthopnea (Chronic hypertension) Endocrine: Reports: Fatigue (Occasionally aware of palpitations.) GI/Abdominal: Reports: Constipation, Other (Has a large abdominal hernia on the right side where he had his renal transplant carried out.) : Reports: Other (Makes a little less than a cup of urine per day.) Musculoskeletal: Reports: Neck Pain, Shoulder Pain, Back Pain Skin: Reports: Bruising (Bruises very easily.) Neurological: Reports: Difficulty Walking (Chronically), Weakness. Denies: Confusion, Dizziness, Headache, Numbness, Paresthesia, Pre-Existing Deficit ( chronically), Syncope, Tingling, Tremors, Trouble Speaking Psychiatric: Reports: No Symptoms Hematologic/Lymphatic: Reports: No Symptoms Immunologic: Reports: No Symptoms ED EXAM, GENERAL - Physical Exam Exam: See Below Exam Limited By: No Limitations General Appearance: Alert, WD/WN, No Apparent Distress Eye Exam: Bilateral Eye: Normal Inspection (No jaundice.) Throat/Mouth: Normal Inspection, Normal Oropharynx, Other Head: Atraumatic, Normocephalic (Tongue is mildly dry.) Neck: Normal Inspection, Supple, Non-Tender, Full Range of Motion. No: Carotid Bruit, Lymphadenopathy (L), Lymphadenopathy (R) Respiratory/Chest: No Respiratory Distress, Lungs Clear, Decreased Breath Sounds , Rales (Few rales appreciated base of the left lung.) Cardiovascular: No Gallop, No Murmur, No Rub, Tachycardia (Monitor reveals atrial fibrillation with a rate of 1//07 to 1 10/m.), Irregularly Irregular. No: Regular Rate, Rhythm, No Edema Peripheral Pulses: 0: Posterior Tibial (L), Posterior Tibial (R), Dorsalis Pedis (L), Dorsalis Pedis (R) GI/Abdominal: Normal Bowel Sounds, Soft, Non-Tender, No Organomegaly, Other (He has a large right-sided abdominal hernia where his right renal transplant was carried out. I cannot palpate his transplanted kidney. He clinically has a fluid wave in his abdomen compatible with ascites.) Extremities: Normal Inspection, Normal Range of Motion, Non-Tender, Pedal Edema (3+ pitting edema in both lower extremities.), Other Neurological: Alert, Oriented (Lower limbs show atrophy of his musculature.), CN II-XII Intact, Normal Cognition. No: Normal Gait Psychiatric: Normal Affect, Normal Mood Skin Exam: Warm, Dry, Intact, Normal Color, No Rash EKG INTERPRETATION EKG Date: 11/23/16 Time: 11:45 Rhythm: A-Fib (With rate of 121 30/m.) Rate (Beats/Min): 104 [place]: Normal P-Wave: Absent QRS: Other (Decreased voltage in the precordial and limb leads. Frequent multifocal PVCs.) ST-T: Depressed (Minimally depressed ST segment in V3 to V6.) QT: Normal Course - Vital Signs Last Recorded V/S: Last Vital Signs Temp 36.5 C 11/23/16 13:40 Pulse 88 11/23/16 13:40 Resp 20 11/23/16 13:40 BP 130/88 11/23/16 13:40 Pulse Ox 98 11/23/16 13:40 - Orders/Labs/Meds Orders: Active Orders 24 hr Category Date Time Status EKG 12 Lead [EKG Documentation Completion] [RC] STAT Care 11/23/16 11:35 Active Chest 1V Frontal [CR] Stat Exams 11/23/16 11:42 Taken Labs: Laboratory Tests 11/23/16 11/23/16 11/23/16 Range/Units 12:04 12:04 12:04 WBC 3.50 L (4.23-9.07) K/mm3 RBC 3.19 L (4.63-6.08) M/mm3 Hgb 10.4 L (13.7-17.5) gm/L Hct 33.5 L (40.1-51.0) % MCV 105.0 H (79.0-92.2) fl MCH 32.6 H (25.7-32.2) pg MCHC 31.0 L (32.2-35.5) g/dl RDW Std Deviation 61.1 H (35.1-43.9) fL Plt Count 106 L (163-337) K/mm3 MPV 9.2 L (9.4-12.3) fl Neutrophils % (Manual) 72 H (40-60) % Band Neutrophils % 0 (0-10) % Lymphocytes % (Manual) 14 L (20-40) % Atypical Lymphs % 0 % Monocytes % (Manual) 13 H (2-10) % Eosinophils % (Manual) 0 L (0.8-7.0) % Basophils % (Manual) 1 (0.2-1.2) Platelet Estimate Decreased Anisocytosis Slight Macrocytosis 1+ slight Tear Drop Cells Few RBC Morph Comment Abnormal Sodium 138 (136-145) mEq/L Potassium 3.7 (3.5-5.1) mEq/L Chloride 102 (98-107) mEq/L Carbon Dioxide 32 (21-32) mEq/L Anion Gap 7.7 (5-15) BUN 8 (7-18) mg/dL Creatinine 3.0 H (0.7-1.3) mg/dL Est Cr Clr Drug Dosing 27.04 mL/min Estimated GFR (MDRD) 21 (>60) mL/min BUN/Creatinine Ratio 2.7 L (14-18) Glucose 91 (74-106) mg/dL Calcium 8.1 L (8.5-10.1) mg/dL Magnesium 1.2 L (1.8-2.4) mg/dl Total Bilirubin 0.5 (0.2-1.0) mg/dL AST 24 (15-37) U/L ALT 11 L (16-63) U/L Alkaline Phosphatase 108 (46-116) U/L Troponin I (0.00-0.056) ng/mL NT-Pro-B Natriuret Pep (0-125) pg/mL Total Protein 8.5 H (6.4-8.2) g/dl Albumin 2.4 L (3.4-5.0) g/dl Globulin 6.1 gm/dL Albumin/Globulin Ratio 0.4 L (1-2) 11/23/16 11/23/16 Range/Units 12:04 12:04 WBC (4.23-9.07) K/mm3 RBC (4.63-6.08) M/mm3 Hgb (13.7-17.5) gm/L Hct (40.1-51.0) % MCV (79.0-92.2) fl MCH (25.7-32.2) pg MCHC (32.2-35.5) g/dl RDW Std Deviation (35.1-43.9) fL Plt Count (163-337) K/mm3 MPV (9.4-12.3) fl Neutrophils % (Manual) (40-60) % Band Neutrophils % (0-10) % Lymphocytes % (Manual) (20-40) % Atypical Lymphs % % Monocytes % (Manual) (2-10) % Eosinophils % (Manual) (0.8-7.0) % Basophils % (Manual) (0.2-1.2) Platelet Estimate Anisocytosis Macrocytosis Tear Drop Cells RBC Morph Comment Sodium (136-145) mEq/L Potassium (3.5-5.1) mEq/L Chloride (98-107) mEq/L Carbon Dioxide (21-32) mEq/L Anion Gap (5-15) BUN (7-18) mg/dL Creatinine (0.7-1.3) mg/dL Est Cr Clr Drug Dosing mL/min Estimated GFR (MDRD) (>60) mL/min BUN/Creatinine Ratio (14-18) Glucose (74-106) mg/dL Calcium (8.5-10.1) mg/dL Magnesium (1.8-2.4) mg/dl Total Bilirubin (0.2-1.0) mg/dL AST (15-37) U/L ALT (16-63) U/L Alkaline Phosphatase (46-116) U/L Troponin I < 0.017 (0.00-0.056) ng/mL NT-Pro-B Natriuret Pep > 25216 H (0-125) pg/mL Total Protein (6.4-8.2) g/dl Albumin (3.4-5.0) g/dl Globulin gm/dL Albumin/Globulin Ratio (1-2) Meds: Medications Discontinued Medications Generic Name Dose Route Start Last Admin Trade Name Freq PRN Reason Stop Dose Admin Metoprolol Tartrate 50 mg 11/23/16 11:35 11/23/16 12:06 Lopressor PO 11/23/16 11:36 50 mg ONETIME ONE Administration - Radiology Interpretation Free Text/Narrative:: 61-year-old male attends the ED from the hemodialysis week because of appreciated increased heart rate while in the dialysis unit today. He has chronic atrial fibrillation. Apparently rate was as high as 1 30/m it is currently 105-107 atrial fibrillation. BP is maintained at 144/96. On examination he does have a decreased air entry to his right lung field compatible with a pleural effusion. Crackles in the left base. Clinically also has some degree of ascites with a fluid wave palpable in the right side of his abdomen lateral to his right renal transplant surgical wound. Plan ECG to be done in routine lab work to check on his potassium. Will give him metoprolol 50 mg by mouth as he usually takes this after dialysis run for rate control. - Re-Assessments/Exams Free Text/Narrative Re-Assessment/Exam: 11/23/16 12:28 portable chest x-ray reveals infiltrate right lower lobe better with a pleural effusion. There is also blunting of left costophrenic angle compatible with fluid. He has borderline cardiomegaly. Heart rate currently is 97/m with BP 129/102. 11/23/16 13:24: Labs reveal a low white count at 3.50 with 72% neutrophils and no bands hemoglobin is low at 10.4 with hematocrit of 33.5 MCV is elevated at 105 due to his renal insufficiency. Sodium was 138 potassium was 3.7 chloride was 102 bicarbonate is 32. Anion gap is 7.7 creatinine is 3.0 EGFR is 21. BNP is grasped still greater than 35,000. This correlates with his chest x-ray picture. Clinically he has ascites as well. Therefore his dry weight is yet to be determined and he needs to continue to be dialyzed as he is retaining a great deal of fluid. His heart rate settled down into the 80s after he was given the metoprolol 50 mg by mouth. He will therefore be discharged home and he 'll skip is 37.5 mg metoprolol that he usually takes when he gets home from dialysis. He will however take the dosage tonight. He had therefore transient rapid ventricular rate up to 130/m of his atrial fibrillation. No specific reason for this was identified. He feels fine and is anxious to get out of the ER. Departure - Departure Time of Disposition: 13:30 Disposition: Home, Self-Care 01 Condition: Fair Clinical Impression: Atrial fibrillation with rapid ventricular response, Hemodialysis patient, Pleural effusion on right Congestive heart failure Qualifiers: Congestive heart failure type: diastolic Congestive heart failure chronicity: chronic Qualified Code(s): I50.32 - Chronic diastolic (congestive) heart failure Ascites Qualifiers: Ascites type: other type Qualified Code(s): R18.8 - Other ascites Instructions: Atrial Fibrillation, [id number] Referrals: Bebo Falk MD [Primary Care Provider] - Forms: ED Department Discharge Additional Instructions: Evaluation in the emergency room this morning after dialysis run because of rapid heart rate up to the 130s appreciated during dialysis today. Chronic atrial fibrillation with rapid ventricular rate appreciated up into the 130s on ECG. He was simply given her metoprolol dosage of 50 mg in the ED which she would normally take when you get home from dialysis 1. This brought her heart rate under much better control with heart rate in the 80s. Blood pressure is also good at 130/88. Lab work did not show anything untoward. Therefore continue with current medications as you usually do except you do not need to of course a dose of metoprolol metoprolol when you get home today. - My Orders Last 24 Hours: My Active Orders 11/23/16 11:35 EKG 12 Lead [EKG Documentation Completion] [RC] STAT 11/23/16 11:42 Chest 1V Frontal [CR] Stat - Assessment/Plan Last 24 Hours: My Active Orders 11/23/16 11:35 EKG 12 Lead [EKG Documentation Completion] [RC] STAT 11/23/16 11:42 Chest 1V Frontal [CR] Stat
[2016-11-23] MEDS ORDERED: Metoprolol Tartrate 50 MG Tab PO ONE (11:35)
[2016-11-23 13:46] VITALS: BP 130/88
--- NOTE | 2016-11-24 10:07 | CR ---
Chest: Frontal view of the chest was obtained. Comparison: Previous chest x-ray of 09/06/16. Atelectasis seen within both lung bases. Questionable small right-sided pleural effusion. Pulmonary vessels are congested. Heart size and mediastinum are within normal limits. Bony structures shows previous resection of the distal left clavicle. Impression: 1. Increased density within both lung bases most likely representing atelectasis. 2. Pulmonary vessels are mildly congested. 3. Other incidental findings. Diagnostic code #3
== END 2016-11-23 13:40 | disposition home or self-care (01) ==
LOC: JD.ED 11:24
DX: I48.2 Chronic atrial fibrillation (principal); J90 Pleural effusion, not elsewhere classified; I50.32 Chronic diastolic (congestive) heart failure; R18.8 Other ascites; Z79.899 Other long term (current) drug therapy; Z79.82 Long term (current) use of aspirin; J45.909 Unspecified asthma, uncomplicated; Z87.891 Personal history of nicotine dependence
CPT/HCPCS: 36415; 71010; 80053; 83735; 83880; 84484; 85025; 93005; 99285; A9270

== ENCOUNTER → 2017-04-09 | Day surgery (SDC) | payer MEDICARE, BC ==
[~2017-04-09] MED LIST: Lactated Ringers 1,000 ML IV SCH; Lidocaine 1% 4 ML ONE; Lidocaine 1%/Sod Bicarbonate in NS 8.4% 1 ML Syringe IDERM PRN; Propofol 200 MG/20 ML SDV ONE; Sodium Chloride 0.9% 10 ML Syringe FLUSH PRN
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
--- NOTE | 2017-04-09 09:18 | PCM.OPNOTE ---
- General Post-Op/Procedure Note Date of Surgery/Procedure: 04/09/17 Operative Procedure(s): colonoscopy to cecum Pre Op Diagnosis: screening colonoscopy Post-Op Diagnosis: Same Anesthesia Technique: MAC Primary Surgeon: Fabio Jones EBL in mLs: 0 Complications: None Condition: Good
[2017-04-09 10:05] VITALS: BP 107/71
--- NOTE | 2017-04-09 10:50 | PCM48HPAN ---
Post Anesthesia Note - EVALUATION WITHIN 48HRS OF ANESTHETIC Vital Signs in Normal Range: Yes Patient Participated in Evaluation: Yes Respiratory Function Stable: Yes Airway Patent: Yes Cardiovascular Function Stable: Yes Hydration Status Stable: Yes Pain Control Satisfactory: Yes Nausea and Vomiting Control Satisfactory: Yes Mental Status Recovered: Yes
--- NOTE | 2017-04-09 11:45 | OR ---
DATE OF OPERATION: 04/09/2017 SURGEON: Fabio Jones MD PREOPERATIVE DIAGNOSIS: Screening colonoscopy. POSTOPERATIVE DIAGNOSIS: Screening colonoscopy. OPERATION PERFORMED: Colonoscopy to cecum. FINDINGS: Normal study. ANESTHESIA: Done under IV sedation. DESCRIPTION OF PROCEDURE: The patient was taken to the endoscopy room, placed in a supine position, connected to monitoring equipment, and given IV sedation. He was placed in the left lateral position. Perianal area was inspected and was normal. Rectal exam showed good sphincter tone. A video Olympus colonoscope was then introduced into the rectum and threaded up without problem to the cecum, where the appendicular orifice was noted. Prep was excellent. [place] cleansing score grade B, and the scope was slowly withdrawn showing the cecum, ascending colon, transverse colon, descending colon, sigmoid colon, and rectum. The patient tolerated the procedure, sent to recovery room in a stable condition, and will be followed up as needed in the clinic. ESTIMATED BLOOD LOSS: MMODAL /[id number]
== END | disposition home or self-care (01) ==
LOC: JD.SDS 07:17
PROVIDERS: ATTEND Surgery
DX: Z12.11 Encounter for screening for malignant neoplasm of colon (principal); I12.0 Hypertensive chronic kidney disease with stage 5 chronic kidney disease or end stage renal disease; N18.5 Chronic kidney disease, stage 5; I48.91 Unspecified atrial fibrillation; J44.9 Chronic obstructive pulmonary disease, unspecified; E03.9 Hypothyroidism, unspecified; F10.11 Alcohol abuse, in remission; F19.20 Other psychoactive substance dependence, uncomplicated; K45.8 Other specified abdominal hernia without obstruction or gangrene; N25.81 Secondary hyperparathyroidism of renal origin; Z87.891 Personal history of nicotine dependence; Z86.14 Personal history of Methicillin resistant Staphylococcus aureus infection; Z79.82 Long term (current) use of aspirin; Z79.51 Long term (current) use of inhaled steroids; Z79.899 Other long term (current) drug therapy; Z88.8 Allergy status to other drugs, medicaments and biological substances; Z83.3 Family history of diabetes mellitus; Z99.2 Dependence on renal dialysis; Z94.0 Kidney transplant status; Z98.49 Cataract extraction status, unspecified eye; Z98.890 Other specified postprocedural states
CPT/HCPCS: G0121; J7120; 00812; J2001; J2704

== ENCOUNTER 2022-02-09 15:19 | Emergency (ER) | payer MEDICARE, BC ==
[2022-02-09] MEDS ORDERED: Sodium Chloride 0.9% 10 ML Syringe FLUSH PRN (15:46)
[2022-02-09] MEDS ORDERED: Lactated Ringers 1,000 ML IV SCH (16:00)
[2022-02-09 16:02] VITALS: BP 80/62; PULSE 54
[2022-02-09] MEDS ORDERED: cefTRIAXone 2 GM in Sodium Chloride 0.9% 100 ML IV ONE (17:08)
[2022-02-09] MEDS ORDERED: Sodium Chloride 0.9% 1,000 ML IV ONE ×2 (17:31→20:32)
[2022-02-09 19:03] LABS: CORONAVIRUS COVID-19 NAA NEGATIVE (NEGATIVE)
[2022-02-09] MEDS ORDERED: Norepinephrine 4 MG in Dextrose 5% in Water 246 ML IV SCH ×4 (19:30→19:45)
[2022-02-09] MEDS ORDERED: Atropine 0.4 MG/ML SDV IVPUSH ONE (19:43)
[2022-02-09] MEDS ORDERED: Azithromycin 500 MG in Sodium Chloride 0.9% 250 ML IV ONE (20:30)
[2022-02-09] MEDS ORDERED: Albuterol/Ipratropium 3.0-0.5 MG/3 ML Neb Soln NEB ONE (20:33)
[2022-02-09] MEDS ORDERED: Acetaminophen 325 MG Tab PO ONE (20:33)
[2022-02-09] MEDS ORDERED: Etomidate 2 MG/ML 20 ML SDV IVPUSH ONE (21:43)
[2022-02-09] MEDS ORDERED: Rocuronium 50 MG/5 ML Vial IVPUSH ONE (23:16)
== END 2022-02-09 22:55 ==
LOC: JD.ED 15:19
DX: A41.9 Sepsis, unspecified organism (principal); N18.6 End stage renal disease; J18.9 Pneumonia, unspecified organism; R65.21 Severe sepsis with septic shock; R74.8 Abnormal levels of other serum enzymes; I48.91 Unspecified atrial fibrillation; I10 Essential (primary) hypertension; J43.9 Emphysema, unspecified; E03.9 Hypothyroidism, unspecified; I45.10 Unspecified right bundle-branch block; Z99.2 Dependence on renal dialysis; Z87.891 Personal history of nicotine dependence; Z88.6 Allergy status to analgesic agent; Z79.899 Other long term (current) drug therapy; Z79.82 Long term (current) use of aspirin; Z20.822 Contact with and (suspected) exposure to COVID-19
CPT/HCPCS: 0241U; 31500; 36415; 71045; 80053; 83605; 83690; 83735; 84484; 85025; 85610; 85730; 86140; 87040; 93005; 94640; 96365; 96366; 96367; 96368; 99285; A9270; J0456; J0696; J3490; J7030; J7050; J7060; J7620-GY